=== PATIENT | male | born 1965 | race Caucasian/White ===

== ENCOUNTER 2018-10-28 06:14 | Day surgery (SDC) | payer BC ==
[2018-10-28] MEDS ORDERED: BUPIVACAINE 0.5% (SDV) 30 ML INJ (06:34)
[2018-10-28] MEDS ORDERED: LIDOCAINE 2% (MDV) 20 ML INJ (06:34)
[2018-10-28] MEDS ORDERED: LIDOCAINE 1% (STERILE-PAK) 30 ML INJ (06:35)
[2018-10-28] MEDS: SOD CHLORIDE 0.9% 1,000 ML IV (07:00)
[2018-10-28] MEDS ORDERED: EPHEDrine SULFATE 50 MG/5 ML SYG (07:00)
[2018-10-28] MEDS ORDERED: CEFAZOLIN 1 GM INJ (07:00)
[2018-10-28 07:10] LABS: ADD MAN DIFF? NO
[2018-10-28 07:17] LABS: WHITE BLOOD COUNT 7.3 10^3/ul (4.8-10.8)
[2018-10-28 07:17] LABS: BASOPHILS % 0.3 % (0.0-2.0); EOSINOPHILS % 0.5 % (0.0-7.0); HEMATOCRIT 43.8 % (42.0-52.0); HEMOGLOBIN 15.5 g/dl (14.0-18.0); LYMPHOCYTES # 1.3 10^3/ul (0.8-2.9); LYMPHOCYTES % 17.2 % (15.0-51.0); MEAN CORPUSCULAR HEMOGLOBIN 30.9 pg (29.0-33.0); MEAN CORPUSCULAR HGB CONC 35.4 g/dl (32.0-37.0); MEAN CORPUSCULAR VOLUME 87.4 fl (82.0-101.0); MEAN PLATELET VOLUME 10.3 fl (7.4-10.4); MONOCYTE # 0.5 10^3/ul (0.3-0.9); MONOCYTES % 6.6 % (0.0-11.0); NEUTROPHIL # 5.4 10^3/ul (1.6-7.5); NEUTROPHILS % 74.7 % (39.0-77.0); PLATELET COUNT 194 10^3/UL (140-415); RED BLOOD COUNT 5.01 10^6/ul (4.70-6.10); RED CELL DISTRIBUTION WIDTH 12.7 % (11.5-14.5)
[2018-10-28 07:31] LABS: INR 0.98; PROTIME 13.1 Sec (11.9-14.9)
[2018-10-28 07:32] LABS: ALANINE AMINOTRANSFERASE 51 IU/L (13-69); ALBUMIN 4.6 g/dl (3.3-4.9); ALBUMIN/GLOBULIN RATIO 1.35; ALKALINE PHOSPHATASE 55 IU/L (42-121); ANION GAP 12 (5-13); ASPARTATE AMINO TRANSFERASE 34 IU/L (15-46); BILIRUBIN,INDIRECT 1.8 mg/dl (0-1.1); BILIRUBIN,TOTAL 1.8 mg/dl (0.2-1.3); BLOOD UREA NITROGEN 14 mg/dl (7-20); CALCIUM 9.6 mg/dl (8.4-10.2); CARBON DIOXIDE 27 mmol/L (21-31); CHLORIDE 104 mmol/L (97-110); CREATININE 0.96 mg/dl (0.61-1.24); Estimated GFR > 60 mL/min (>60); GLUCOSE 100 mg/dl (70-220); PARTIAL THROMBOPLASTIN TIME 31.3 Sec (23.0-35.0); POTASSIUM 4.4 mmol/L (3.5-5.1); SODIUM 143 mmol/L (135-144)
[2018-10-28] MEDS ORDERED: FENTAnyl 50 MCG/ML VIAL (07:47)
[2018-10-28] MEDS ORDERED: MIDAZOLAM 1 MG/ML 2 ML INJ (07:47)
[2018-10-28] MEDS ORDERED: PROPOFOL 20 ML (07:47)
[2018-10-28] MEDS ORDERED: ONDANSETRON 4 MG INJ IV (08:00)
[2018-10-28] MEDS ORDERED: HYDROmorphONE 1 MG/5 ML IV SYRINGE IV ×3 (08:00)
[2018-10-28] MEDS ORDERED: EPHEDrine SULFATE 50 MG/5 ML SYG IV (08:00)
[2018-10-28] MEDS ORDERED: OXYCODONE/ACETAMINOPHEN (5/325) TAB PO (08:00)
[2018-10-28] MEDS ORDERED: METOCLOPRAMIDE 10 MG INJ IV (08:00)
[2018-10-28] MEDS ORDERED: LABETALOL HCL 20MG INJ IV (08:00)
[2018-10-28] MEDS ORDERED: MEPERIDINE 25 MG INJ IV (08:00)
[2018-10-28] MEDS ORDERED: DIPHENHYDRAMINE 50 MG INJ IV (08:00)
[2018-10-28] MEDS ORDERED: FENTAnyl 50 MCG/ML VIAL IV ×3 (08:00)
[2018-10-28] MEDS ORDERED: KETOROLAC 30 MG INJ (08:02)
[2018-10-28] MEDS ORDERED: METOCLOPRAMIDE 10 MG INJ (08:02)
[2018-10-28] MEDS ORDERED: DEXAMETHASONE 4 MG/ML 1 ML INJ (08:02)
[2018-10-28] MEDS ORDERED: ONDANSETRON 4 MG INJ (08:02)
[2018-10-28] MEDS: BUPIVACAINE 0.25% (MPF) 30 ML INJ (08:07)
[2018-10-28] MEDS ORDERED: HYDROCODONE/APAP (5/325) TAB PO (08:30)
[2018-10-28] MEDS: CEFAZOLIN 2 GM/50 ML (PMX) 50 ML IVPB (09:03)
== END 2018-10-28 10:01 | disposition home or self-care (01) ==
LOC: SDS 06:14
DX: D17.23 Benign lipomatous neoplasm of skin and subcutaneous tissue of right leg (principal)
CPT/HCPCS: 14020; 71045; 80053; 85025; 85610; 85730; 88307; 93005